=== PATIENT | female | born 1950 | race Hispanic/Latino ===

== ENCOUNTER 2023-12-17 08:28 | Outpatient (CLI) | payer OTHER, MEDICAID | END 2023-12-17 08:29 | disposition home or self-care (01) | LOC: CSHMRI 08:28 | PROVIDERS: ATTEND Family Medicine | DX: Z01.818 Encounter for other preprocedural examination (principal); M47.26 Other spondylosis with radiculopathy, lumbar region | CPT/HCPCS: 71045; 72148 ==

== ENCOUNTER 2024-01-17 10:27 | Observation (INO) | payer OTHER, MEDICAID ==
[2024-01-17] MEDS ORDERED: Acetaminophen 500 MG TAB ONE (12:14)
[2024-01-17] MEDS ORDERED: Methocarbamol 500 MG TAB ONE (12:15)
[2024-01-17] MEDS ORDERED: Lidocaine 4% Patch ONE (12:16)
[2024-01-17 12:33] LABS: #Basophils 0.02 10x3/uL (0.0-0.2); #Eosinphils 0.14 10x3/uL (0.0-0.5); #Monocytes 0.55 10x3/uL (0.0-1.1); #Neutrophils 4.54 10x3/uL (1.5-8.4); %Basophils 0.3 % (0.0-2.0); %Eosinophils 2.1 % (0.0-6.0); %Lymphocytes 21.5 % (18.0-47.0); %Monocytes 8.2 % (0.0-10.0); %Neutrophils 67.6 % (40.0-75.0); Hematocrit 33.4 % (34.9-44.5); Hemoglobin 10.8 g/dL (12.0-15.5); Mean Corpuscular HGB CONC 32.3 g/dL (32.0-36.0); Mean Corpuscular Hemoglobin 30.7 pg (27.0-33.0); Mean Corpuscular Volume 94.9 fL (81.6-98.3); Mean Platelet Volume 9.1 fL (7.4-10.4); Platelet Count 222 10x3/uL (150-450); RBC Distribution Width 12.8 % (11.5-14.5); Red Blood Cell (RBC) Count 3.52 10x6/uL (3.90-5.03); White Blood Cell (WBC) Count 6.7 10x3/uL (3.5-10.5)
[2024-01-17 12:38] LABS: Anion Gap 16 mmol/L (10-20); BUN (Urea Nitrogen) 49 mg/dL (9.8-20.1); Calc. Creatinine Clearance 0 mL/min (70-130); Carbon Dioxide 22 mmol/L (23-31); Chloride 101 mmol/L (98-107); Estimated GFR 29; Glucose 92 mg/dL (83-110); Potassium 5.1 mmol/L (3.5-5.1); Sodium 134 mmol/L (136-145)
[2024-01-17 13:03] LABS: Bilirubin Neg (Negative); Blood, Urine Negative (Negative); Clarity Clear (Clear); Glucose, Urine (Dipstick) 250 mg/dL (Negative); Ketone, Urine Negative (Negative); Leukocyte 25 (Negative); Nitrite Negative (Negative); Protein, Urine (Dipstick) Negative (Neg-Trace); Specific Gravity, Urine 1.005 (1.005-1.030); Urobilinogen Normal mg/dL (Less than 2)
[2024-01-17 13:18] LABS: RBC/HPF 0-3 HPF (0-3)
[2024-01-17 13:19] LABS: Bacteria/HPF 3+ HPF (None Seen); CAUTI Indications for Culture Pelvic or flank pain; Squamous Epithelial 0-3 HPF (0-3); WBC/HPF 0-3 HPF (0-3)
[2024-01-17 13:21] LABS: Urine Culture Reflex No No
[2024-01-17] MEDS ORDERED: Ondansetron ODT 4 MG TAB PO PRN (17:06)
[2024-01-17] MEDS ORDERED: Ondansetron PF 4 MG/2 ML Vial IVP PRN (17:06)
[2024-01-17] MEDS ORDERED: Acetaminophen 650 MG Suppository PR PRN (17:06)
[2024-01-17] MEDS ORDERED: Docusate 100 MG CAP PO PRN (17:11)
[2024-01-17] MEDS ORDERED: Polyethylene Glycol 3350 17 GM Packet PO PRN (17:11)
[2024-01-17] MEDS: Acetaminophen 325 MG TAB PO SCH (20:37)
[2024-01-17] MEDS: Famotidine/PF 20 mg/2ml Vial SLOW IVP SCH (20:37)
[2024-01-17] MEDS: Apixaban 5 MG TAB PO SCH (20:37)
[2024-01-17] MEDS: Methocarbamol 500 MG TAB PO PRN (20:42)
[2024-01-18 04:17] LABS: ALT (SGPT) 9 U/L (8-55); AST (SGOT) 13 U/L (5-34); Albumin 3.1 g/dL (3.4-4.8); Alkaline Phosphatase 54 U/L (40-110); Anion Gap 15 mmol/L (10-20); BUN (Urea Nitrogen) 40 mg/dL (9.8-20.1); Bilirubin, Total 0.6 mg/dL (0.2-1.2); Calc. Creatinine Clearance 0 mL/min (70-130); Calcium 9.7 mg/dL (7.8-10.44); Carbon Dioxide 23 mmol/L (23-31); Chloride 103 mmol/L (98-107); Estimated GFR 45; Globulin 3.2 g/dL (2.4-3.5); Glucose 73 mg/dL (83-110); Potassium 4.5 mmol/L (3.5-5.1); Protein, Total 6.3 g/dL (5.8-8.1); Sodium 136 mmol/L (136-145)
[2024-01-18] MEDS: Amiodarone 200 MG TAB PO SCH (09:40)
[2024-01-18] MEDS: Carvedilol 25 MG TAB PO SCH (09:40)
[2024-01-18 11:19] VITALS: BMI 447957.9
[2024-01-18] MEDS: Furosemide 20 MG TAB PO SCH (12:07)
[2024-01-18] MEDS: Empagliflozin 25 MG TAB PO SCH (12:07)
[2024-01-18] MEDS: Lidocaine 4% Patch TD SCH (12:07)
[2024-01-18 16:38] VITALS: BP 101/60; TEMP 97.8
[2024-01-18] MEDS ORDERED: Sacubitril 24MG/Valsartan 26 MG TAB PO SCH (21:00)
[2024-01-18] MEDS ORDERED: SACUBITRIL PO SCH (21:00)
[2024-01-18] MEDS ORDERED: VALSARTAN PO SCH (21:00)
[2024-01-18] MEDS ORDERED: [UNRECOGNIZED DRUG - OTHER] PO SCH (21:00)
[2024-01-18] MEDS ORDERED: Atorvastatin Calcium 10 MG TAB PO SCH (21:00)
[2024-01-18] MEDS ORDERED: Transdermal Patch Removal TOP SCH (22:00)
[2024-01-19] MEDS ORDERED: Potassium Chloride 20 MEQ TAB PO SCH (09:00)
[2024-01-19] MEDS ORDERED: Floranex 1 GM Packet PO SCH (09:00)
[2024-01-19] MEDS ORDERED: Hydrochlorothiazide 25 MG TAB PO SCH (09:00)
[2024-01-19] MEDS ORDERED: Empagliflozin 25 MG TAB PO SCH (09:00)
[2024-01-19] MEDS ORDERED: Lidocaine 4% Patch TD SCH (09:00)
[2024-01-19] MEDS ORDERED: Furosemide 20 MG TAB PO SCH (09:00)
[2024-01-19] MEDS ORDERED: Spironolactone 25 MG TAB PO SCH (09:00)
== END 2024-01-18 17:52 ==
LOC: CSHERS 10:27 → CSHTELE 17:04
PROVIDERS: ADMIT Family Medicine; ATTEND Nurse Practitioner Family
DX: M54.16 Radiculopathy, lumbar region (principal); R26.2 Difficulty in walking, not elsewhere classified; I48.91 Unspecified atrial fibrillation; N17.9 Acute kidney failure, unspecified; I13.0 Hypertensive heart and chronic kidney disease with heart failure and stage 1 through stage 4 chronic kidney disease, or unspecified chronic kidney disease; N18.9 Chronic kidney disease, unspecified; E11.22 Type 2 diabetes mellitus with diabetic chronic kidney disease; I50.42 Chronic combined systolic (congestive) and diastolic (congestive) heart failure; D63.1 Anemia in chronic kidney disease; E66.9 Obesity, unspecified; E78.5 Hyperlipidemia, unspecified; J45.909 Unspecified asthma, uncomplicated; Z98.890 Other specified postprocedural states; Z86.718 Personal history of other venous thrombosis and embolism; Z87.891 Personal history of nicotine dependence; Z79.899 Other long term (current) drug therapy
CPT/HCPCS: 80048; 80053; 81001; 85025; 94760; 94762; 96374; 97530; 99285; G0378 ×3; J3490; 36415

== ENCOUNTER 2025-03-12 11:08 | Outpatient (CLI) | payer OTHER, MEDICAID | END 2025-03-12 11:09 | disposition home or self-care (01) | LOC: CSHMRI 11:08 | PROVIDERS: ATTEND Nurse Practitioner Family | DX: M47.816 Spondylosis without myelopathy or radiculopathy, lumbar region (principal); M48.061 Spinal stenosis, lumbar region without neurogenic claudication; M48.07 Spinal stenosis, lumbosacral region | CPT/HCPCS: 72148 ==